=== PATIENT | female | born 1990 | race American Indian/Alaskan Native ===

== ENCOUNTER 2016-08-22 09:45 | Emergency (ER) | payer SELFPAY ==
[2016-08-22 09:57] VITALS: BP 139/96
--- NOTE | 2016-08-22 10:32 | Emergency Department Report ---
Entered by PENNY ARTIS, acting as scribe for MICH NEGRON PA. Chief Complaint: Abdominal Pain Stated Complaint: ABD CRAMPING Time Seen by Provider: 08/22/16 09:59 - HPI History of Present Illness: Pt c/o of abdominal cramping that began 5 days ago. 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 Denies dysuria, urgency, and frequency. A1 Pt states she took a test, which was negative - ROS Review of Systems: All systems are negative unless stated in the HPI above. - Exam Vital Signs: Vital Signs 08/22/16 09:52 Temperature 98.5 F Pulse Rate 98 H Respiratory 16 Rate Blood Pressure 139/96 O2 Sat by Pulse 100 Oximetry Physical Exam: GENERAL: Patient is alert and oriented x 3. No apparent distress, normal gait, atraumatic. LUNGS: Symmetrical with respiration. No wheezing, rales or crackles, CTAB. HEART: Regular rate and rhythm with normal S1/S2 present. No murmurs, rubs, or gallops. ABDOMEN: Soft, nondistended. No organomegaly was noted. Positive bowel sounds. No CVA tenderness. Suprapubic tenderness present. MSE screening note: Focused history and physical exam performed. Due to findings the following was ordered: ED Medical Decision Making - Medical Decision Making Patient seen by provider in triage area. UA and blood work sent for patient. ED Disposition for MSE Condition: Stable Instructions: Abdominal Pain (ED) This documentation as recorded by the scribe,PENNY ARTIS,accurately reflects the service I personally performed and the decisions made by me, MICH NEGRON PA.
[2016-08-22 10:33] LABS: Anion Gap 20 mmol/L; BUN/Creatinine Ratio 18.33; Blood Urea Nitrogen 11 mg/dL (7-17); Carbon Dioxide 21 mmol/L (22-30); Glucose 92 mg/dL (65-100); Lipase 42 units/L (13-60); Potassium 3.9 mmol/L (3.6-5.0); Sodium 138 mmol/L (137-145)
[2016-08-22 10:35] LABS: Bilirubin,Urine NEG (Negative); Blood,Urine NEG (Negative); Ketones,Urine NEG (Negative); Leukocyte Esterase,Urine NEG (Negative); Mucus,Urine FEW /HPF; Nitrite,Urine NEG (Negative); Protein,Urine <15 mg/dL mg/dL (Negative); Urobilinogen,Urine < 2.0 mg/dL (<2.0)
[2016-08-22 10:56] LABS: Basophils % (Auto) 0.3 % (0.0-1.8); Eosinophils % (Auto) 1.8 % (0.0-4.3); Hematocrit 39.9 % (30.3-42.9); Hemoglobin 13.4 gm/dl (10.1-14.3); Mean Corpuscular HGB Conc 34 % (30-34); Mean Corpuscular Hemoglobin 30 pg (28-32); Mean Corpuscular Volume 88 fl (79-97); Platelet Count 205 K/mm3 (140-440); Red Blood Count 4.52 M/mm3 (3.65-5.03); Red Cell Distribution Width 14.2 % (13.2-15.2); White Blood Count 5.2 K/mm3 (4.5-11.0)
--- NOTE | 2016-08-26 16:06 | ED Elopement Review ---
ED Pt Elopement review - Results review Lab results: Laboratory Tests 08/22/16 08/22/16 08/22/16 10:02 10:02 10:10 WBC 5.2 RBC 4.52 Hgb 13.4 Hct 39.9 MCV 88 MCH 30 MCHC 34 RDW 14.2 Plt Count 205 Lymph % (Auto) 42.2 H [place] % (Auto) 6.8 Eos % (Auto) 1.8 Baso % (Auto) 0.3 Lymph # 2.2 [place] # 0.4 Eos # 0.1 Baso # 0.0 Seg Neutrophils % 48.9 Seg Neutrophils # 2.6 Sodium 138 Potassium 3.9 Chloride 101.0 Carbon Dioxide 21 L Anion Gap 20 BUN 11 Creatinine 0.6 L Estimated GFR > 60 BUN/Creatinine Ratio 18.33 Glucose 92 Calcium 9.0 Lipase 42 HCG, Quant < 2 Urine Color Urine Turbidity Urine pH Ur Specific [place] Urine Protein Urine Glucose (UA) Urine Ketones Urine Blood Urine Nitrite Urine Bilirubin Urine Urobilinogen Ur Leukocyte Esterase Urine WBC (Auto) Urine RBC (Auto) U Epithel Cells (Auto) Urine Mucus 08/22/16 Unknown WBC RBC Hgb Hct MCV MCH MCHC RDW Plt Count Lymph % (Auto) [place] % (Auto) Eos % (Auto) Baso % (Auto) Lymph # [place] # Eos # Baso # Seg Neutrophils % Seg Neutrophils # Sodium Potassium Chloride Carbon Dioxide Anion Gap BUN Creatinine Estimated GFR BUN/Creatinine Ratio Glucose Calcium Lipase HCG, Quant Urine Color Yellow Urine Turbidity Clear Urine pH 6.0 Ur Specific [place] 1.024 Urine Protein <15 mg/dl Urine Glucose (UA) Neg Urine Ketones Neg Urine Blood Neg Urine Nitrite Neg Urine Bilirubin Neg Urine Urobilinogen < 2.0 Ur Leukocyte Esterase Neg Urine WBC (Auto) 1.0 Urine RBC (Auto) 5.0 U Epithel Cells (Auto) 4.0 Urine Mucus Few - Call Back decision Pt Call Back Decision: No action required
== END 2016-08-22 22:10 | disposition left against medical advice (07) ==
LOC: ED 09:45
DX: R10.9 Unspecified abdominal pain (principal); R11.2 Nausea with vomiting, unspecified; Z53.21 Procedure and treatment not carried out due to patient leaving prior to being seen by health care provider
CPT/HCPCS: 36415; 80048; 81001; 83690; 84702; 85025

== ENCOUNTER 2017-01-14 23:12 | Emergency (ER) | payer MEDICAID ==
[2017-01-14 23:31] VITALS: BP 112/79
[2017-01-15 00:01] LABS: Basophils % (Auto) 0.3 % (0.0-1.8); Eosinophils % (Auto) 1.6 % (0.0-4.3); Hematocrit 37.7 % (30.3-42.9); Hemoglobin 12.7 gm/dl (10.1-14.3); Mean Corpuscular HGB Conc 34 % (30-34); Mean Corpuscular Hemoglobin 30 pg (28-32); Mean Corpuscular Volume 89 fl (79-97); Platelet Count 230 K/mm3 (140-440); Red Blood Count 4.23 M/mm3 (3.65-5.03); Red Cell Distribution Width 13.1 % (13.2-15.2); White Blood Count 7.1 K/mm3 (4.5-11.0)
[2017-01-15 00:19] LABS: BUN/Creatinine Ratio 17; Blood Urea Nitrogen 10 mg/dL (7-17); Calcium 9.2 mg/dL (8.4-10.2); Carbon Dioxide 23 mmol/L (22-30); Chloride 103.9 mmol/L (98-107); Glucose 112 mg/dL (65-100); Sodium 143 mmol/L (137-145)
[2017-01-15 00:27] LABS: Anion Gap 20 mmol/L
[2017-01-15 02:44] LABS: Bilirubin,Urine NEG (Negative); Blood,Urine NEG (Negative); Ketones,Urine NEG (Negative); Leukocyte Esterase,Urine NEG (Negative); Mucus,Urine 1+ /HPF; Nitrite,Urine NEG (Negative); Protein,Urine <15 mg/dL mg/dL (Negative); Urobilinogen,Urine < 2.0 mg/dL (<2.0)
== END 2017-01-15 02:48 | disposition left against medical advice (07) ==
LOC: ED 23:12
DX: R10.9 Unspecified abdominal pain (principal); R11.0 Nausea; Z53.21 Procedure and treatment not carried out due to patient leaving prior to being seen by health care provider
CPT/HCPCS: 36415; 80048; 81001; 84703; 85025

== ENCOUNTER 2017-05-14 19:54 | Emergency (ER) | payer MEDICAID ==
[2017-05-14 20:44] VITALS: BP 108/79
[2017-05-15] MEDS ORDERED: MOTRIN ONE (01:28)
[2017-05-15] MEDS ORDERED: MOTRIN PO ONE (01:28)
--- NOTE | 2017-05-15 01:46 | Emergency Department Report ---
ED ENT HPI - General Chief complaint: Earache Stated complaint: RIGHT EAR INFECTION/PAIN Time Seen by Provider: 05/15/17 01:18 Source: patient Mode of arrival: Ambulatory Limitations: No Limitations - History of Present Illness Initial comments: This is a 26 y.o. female with right ear pain and swollen glands for 2 days. She have a history of recurrent ear infections. 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 She is taking tylenol and using hot compresses with no improvement of symptoms. She noticed a swollen gland above right ear and it is very painful to touch. Pain is 10/10 and worse with touch and eating. Denies discharge, hearing loss, and toothache. MD complaint: ear pain (right ear) -: days(s) (2) Location: R ear Severity: severe Severity scale (0 -10): 10 Quality: aching (and throbbing), constant Consistency: constant Improves with: none Worsens with: swallowing, other (touch) Context-Epistaxis: history of similar Associated Symptoms: pain with swallowing. denies: fever, cough, gum swelling, toothache, sore throat, tinnitus, hearing loss, discharge from ear, rhinorrhea - Related Data Previous Rx's Medication Instructions Recorded Last Taken Type Amoxicillin/Potassium Clav 1 each PO BID 10 Days #20 tablet 05/15/17 Unknown Rx [Augmentin 875-125 Tablet] Ibuprofen 800 mg PO Q6H PRN #20 tablet 05/15/17 Unknown Rx Allergies Allergy/AdvReac Type Severity Reaction Status Date / Time No Known Allergies Allergy Verified 05/15/17 01:30 ED Dental HPI - General Chief complaint: Earache Stated complaint: RIGHT EAR INFECTION/PAIN Time Seen by Provider: 05/15/17 01:18 Source: patient Mode of arrival: Ambulatory Limitations: No Limitations - Related Data Previous Rx's Medication Instructions Recorded Last Taken Type Amoxicillin/Potassium Clav 1 each PO BID 10 Days #20 tablet 05/15/17 Unknown Rx [Augmentin 875-125 Tablet] Ibuprofen 800 mg PO Q6H PRN #20 tablet 05/15/17 Unknown Rx Allergies Allergy/AdvReac Type Severity Reaction Status Date / Time No Known Allergies Allergy Verified 05/15/17 01:30 ED Review of Systems ROS: Stated complaint: RIGHT EAR INFECTION/PAIN Other details as noted in HPI Constitutional: denies: chills, fever ENT: ear pain (right). denies: throat pain, dental pain, hearing loss, epistaxis, congestion Respiratory: denies: cough, shortness of breath, wheezing Cardiovascular: denies: chest pain, palpitations Gastrointestinal: denies: abdominal pain, nausea, diarrhea Hematological/Lymphatic: swollen glands (right cervical). denies: easy bleeding , easy bruising ED Past Medical Hx - Past Medical History Hx Psychiatric Treatment: Yes (bipolar,anxiety) - Surgical History Additional Surgical History: Ovarian tumor removal - Social History Smoking Status: Current Every Day Smoker Substance Use Type: None - Medications Home Medications: Home Medications Medication Instructions Recorded Confirmed Last Taken Type Amoxicillin/Potassium Clav 1 each PO BID 10 Days #20 tablet 05/15/17 Unknown Rx [Augmentin 875-125 Tablet] Ibuprofen 800 mg PO Q6H PRN #20 tablet 05/15/17 Unknown Rx ED Physical Exam - General Limitations: No Limitations General appearance: alert, in no apparent distress - ENT ENT exam: Present: mucous membranes moist. Absent: TM's normal bilaterally ( bulging, erythematous TM on right, ), normal external ear exam - Neck Neck exam: Present: lymphadenopathy (Swollen preauricular lymph node, fixed, tender to palpation) - Respiratory Respiratory exam: Present: normal lung sounds bilaterally. Absent: respiratory distress - Cardiovascular Cardiovascular Exam: Present: regular rate, normal rhythm. Absent: systolic murmur, diastolic murmur, rubs, gallop - GI/Abdominal GI/Abdominal exam: Present: soft, normal bowel sounds - Neurological Exam Neurological exam: Present: alert, oriented X3 - Skin Skin exam: Present: warm, dry, intact, normal color. Absent: rash ED Course Vital Signs 05/14/17 20:41 Temperature 98.6 F Pulse Rate 73 Respiratory 18 Rate Blood Pressure 108/79 O2 Sat by Pulse 100 Oximetry ED Medical Decision Making - Medical Decision Making This is a 26-year-old female that presents with right ear pain and swollen lymph node for 2 days. History of recurrent otitis media. Patient is stable and was examined by me. Given ibuprofen 800 mg po once in ER. Physical assessment susceptible of otitis media. Discussed plan with patient to start augmentin. She agreed with ER plan. Discharged home with augmentin 875/125 mg po bid x 10 days and ibuprofen 800 mg po q6h, PRN #20. Follow up with ENT IN 2-3 days. Critical care attestation.: If time is entered above; I have spent that time in minutes in the direct care of this critically ill patient, excluding procedure time. ED Disposition Clinical Impression: Otitis media Qualifiers: Otitis media type: allergic Chronicity: acute Laterality: right Recurrence: recurrent Qualified Code(s): H65.114 - Acute and subacute allergic otitis media (mucoid) (sanguinous) (serous), recurrent, right ear Disposition: TO HOME OR SELFCARE Is pt being admited?: No Does the pt Need Aspirin: No Condition: Stable Instructions: Otitis Media (ED) Additional Instructions: Complete augmentin as prescribed for the entire 10 days. Take ibuprofen or tylenol for pain control. Follow up with ENT. Prescriptions: Amoxicillin/Potassium Clav [Augmentin 875-125 Tablet] 1 each PO BID 10 Days #20 tablet Ibuprofen 800 mg PO Q6H PRN #20 tablet PRN Reason: Pain Referrals: ANT AVILEZ MD [Staff Physician] - 3-5 Days JOI GROSS MD [Staff Physician] - 3-5 Days Time of Disposition: 01:59 Print Language: SPANISH
[2017-05-15] MEDS ORDERED: AUGMENTIN 875 MG PO ONE (02:00)
== END 2017-05-15 02:11 | disposition home or self-care (01) ==
LOC: ED 19:54
DX: H65.114 Acute and subacute allergic otitis media (mucoid) (sanguinous) (serous), recurrent, right ear (principal); F31.9 Bipolar disorder, unspecified; F41.9 Anxiety disorder, unspecified; F17.200 Nicotine dependence, unspecified, uncomplicated
CPT/HCPCS: 99282

== ENCOUNTER 2017-05-16 20:14 | Emergency (ER) | payer MEDICAID ==
[2017-05-16 20:50] VITALS: BP 112/78
[2017-05-16] MEDS ORDERED: XYLOCAINE 1% 20 mL INFILTRATI ONE (21:42)
--- NOTE | 2017-05-16 21:42 | Emergency Department Report ---
Blank Doc - Documentation Documentation: Patient is a 26-year-old female who is presenting with an abscess above the right ear. As been present for several days patient's been on Augmentin but is not getting better. Patient will be sent to the treatment room Monday
[2017-05-16] MEDS ORDERED: NORCO 7.5/325 PO ONE (21:54)
--- NOTE | 2017-05-16 22:46 | Emergency Department Report ---
Abscess Boil [facility] Chief Complaint: Earache Stated Complaint: EAR INFECTION Time Seen by Provider: 05/16/17 21:32 Duration: 3 Days Location: Other (right ear) History: Yes Pain, No Fever, No Purulent Drainage, No Numbness, No Foreign Body , No Previous History, No Insect Bite Home Medications: Previous Rx's Medication Instructions Recorded Last Taken Type Amoxicillin/Potassium Clav 1 each PO BID 10 Days #20 tablet 05/15/17 Unknown Rx [Augmentin 875-125 Tablet] Ibuprofen 800 mg PO Q6H PRN #20 tablet 05/15/17 Unknown Rx Allergies/Adverse Reactions: Allergies Allergy/AdvReac Type Severity Reaction Status Date / Time No Known Allergies Allergy Verified 05/15/17 01:30 ED Review of Systems ROS: Stated complaint: EAR INFECTION Other details as noted in HPI ED Past Medical Hx - Past Medical History Previous Medical History?: No Hx Psychiatric Treatment: Yes (bipolar,anxiety) - Surgical History Additional Surgical History: Ovarian tumor removal - Social History Smoking Status: Current Every Day Smoker Substance Use Type: None - Medications Home Medications: Home Medications Medication Instructions Recorded Confirmed Last Taken Type Amoxicillin/Potassium Clav 1 each PO BID 10 Days #20 tablet 05/15/17 Unknown Rx [Augmentin 875-125 Tablet] Ibuprofen 800 mg PO Q6H PRN #20 tablet 05/15/17 Unknown Rx ED Abscess Boil Physical Exam - Exam General: Vital signs noted. No distress. Alert and acting appropriately. I & D Note - I & D Note I & D Note: Area was cleaned and prepped with Betadine. Sterile draping placed. Incision with 15 blade vertical about a half an inch. Express of purulent serous sanguinous foul smelling discharge. Very tender to express. Patient tolerated procedure well. ED Course Vital Signs 05/16/17 20:47 Temperature 98.2 F Pulse Rate 97 H Respiratory 16 Rate Blood Pressure 112/78 O2 Sat by Pulse 98 Oximetry Critical care attestation.: If time is entered above; I have spent that time in minutes in the direct care of this critically ill patient, excluding procedure time. ED Medical Decision Making - Medical Decision Making Patient's been evaluated by this provider fast track as well as Dr. Benedict. I did an I&D for the perirectal or abscess. Patient was given [place] 7.5 prior to procedure. Patient was to continue with the Augmentin and ibuprofen. Discussed the patient she needs to follow up in 2 days to have packing removed and reevaluated. Patient verbalized understanding. ED Disposition Clinical Impression: Abscess of preauricular sinus Disposition: - TO HOME OR SELFCARE Is pt being admited?: No Does the pt Need Aspirin: No Condition: Stable Instructions: Abscess (ED) Additional Instructions: Please return to the emergency room to have packing removed and reevaluation of wound. Continue with all medication as prescribed. Follow up with her primary care provider within 2 weeks. Referrals: TRAY IGLESIAS MD [Primary Care Provider] - 3-5 Days Forms: Work/School Release Form(ED), Accompanied Note
== END 2017-05-16 23:00 | disposition home or self-care (01) ==
LOC: ED 20:14
DX: H60.01 Abscess of right external ear (principal)

== ENCOUNTER 2017-05-18 16:23 | Emergency (ER) | payer MEDICAID ==
[2017-05-18 17:38] VITALS: BP 96/53
== END 2017-05-18 20:28 | disposition left against medical advice (07) ==
LOC: ED 16:23
DX: Z48.01 Encounter for change or removal of surgical wound dressing (principal); Z53.21 Procedure and treatment not carried out due to patient leaving prior to being seen by health care provider